=== PATIENT | male | born 1965 | race Caucasian/White ===

== ENCOUNTER → 2016-04-01 | Outpatient (CLI) | payer BC ==
[~2016-04-01] MED LIST: ACET-1311 PO; CIPR-255 PO; OXYC-57 PO; OXYC7.5T65 PO; PHEN-775 PO
[2016-04-01 10:56] LABS: BASO % 1.2 %; BASO ABS # 0.06 K/uL (0-0.2); COMPLETE YES; HEMATOCRIT 42.1 % (42-52); LYMPH % 33.7 %; LYMPH ABS # 1.68 K/uL (1.2-3.4); MEAN CELL VOLUME 91.5 fL (80-100); MEAN CORPUSCULAR HEMOGLOBIN 30.4 pg (25-34); MEAN CORPUSCULAR HGB CONC 33.3 g/dl (32-36); MEAN PLATELET VOLUME 9.6 fL (7.4-10.4); MONO % 14.3 %; NEUT % 47.8 %; PLATELET COUNT 221 K/uL (130-400); WHITE BLOOD COUNT 4.98 K/uL (4.8-10.8)
[2016-04-01 11:01] LABS: URINE APPEARANCE CLEAR (CLEAR); URINE BILIRUBIN NEG (NEG); URINE COLOR YELLOW; URINE EPITHELIAL CELL AUTO 0-5 /lpf (0-5); URINE NITRITE NEG (NEG); URINE PH 5.5 (4.5-7.5); URINE SPECIFIC GRAVITY 1.021 (1.000-1.030); UROBILINOGEN NEG (NEG)
[2016-04-01 11:08] LABS: MANUAL MICROSCOPIC REQUIRED? NO; REVIEW REQ? NO
[2016-04-01 11:32] LABS: BLOOD UREA NITROGEN 14 mg/dl (7-18); BUN/CREATININE RATIO 11.6 (10-20); CALCIUM 9.9 mg/dl (8.5-10.1); CARBON DIOXIDE 27 mmol/L (21-32); CHLORIDE 109 mmol/L (98-107); GLUCOSE 97 mg/dl (70-99); POTASSIUM 4.4 mmol/L (3.5-5.1); SODIUM 143 mmol/L (136-145)
== END | disposition home or self-care (01) ==
LOC: C.LAB 09:31
PROVIDERS: ATTEND Nurse Practitioner Family
DX: N20.0 Calculus of kidney (principal)

== ENCOUNTER → 2016-04-04 | Outpatient (CLI) | payer BC ==
--- NOTE | 2016-04-04 18:00 | DIAGNOSTIC IMAGING REPORT ---
KUB CLINICAL HISTORY: Preop study. Nephrolithiasis. COMPARISON STUDY: 03/18/2016 FINDINGS: There are 3 lower pole left renal calculi measuring 7 mm in aggregate. There are 2 overlapping calcifications projected over the superior margin of the left SI joint consistent with the left ureteral calculi. These measure 9 mm in aggregate. IMPRESSION: 1. Left-sided nephrolithiasis 2. 2 overlapping mid left ureteral calculi measuring 9 mm in aggregate Electronically signed by: Aric Gray M.D. 04/04/2016 5:58 PM Dictated Date/Time: 04/04/2016 5:55 PM
== END | disposition home or self-care (01) ==
LOC: C.RAD 16:29
PROVIDERS: ATTEND Nurse Practitioner Family
DX: N20.0 Calculus of kidney (principal); N20.1 Calculus of ureter

== ENCOUNTER → 2016-04-05 | Day surgery (SDC) | payer BC ==
[2016-04-02 13:03] VITALS: Ht 175.3 cm; Wt 96.8 kg
[~2016-04-05] VITALS: Ht 175.3 cm; Wt 96.8 kg
[~2016-04-05] MED LIST changes: +ATROPINE SULFATE 0.1 MG/ML 5ML SYR IV PRN; +CIPROFLOXACIN / D5W 400 MG IV SCH; +DEXAMETHASONE SOD INJ 4 MG/ML VIAL ONE; +EpHEDrine SULFATE INJ 50 MG/ML AMP IV PRN; +FENTANYL CITRATE INJ 50 MCG/1 ML 2 ML VIAL IV PRN; +FENTANYL CITRATE INJ 50 MCG/1 ML 2 ML VIAL ONE; +GLYCOPYRROLATE INJ 0.2 MG/ML VIAL ONE; +LACTATED RINGER'S 1000ML 1,000 ML IV SCH; +MIDAZOLAM HCL 1 MG/ML 2ML VIAL ONE; +ONDANSETRON INJ 2 MG/ML 2 ML VIAL IV PRN; +ONDANSETRON INJ 2 MG/ML 2 ML VIAL ONE; +PROPOFOL IV EMULSION 10 MG/ML 20 ML VIAL IV ONE
--- NOTE | 2016-04-05 07:04 | History & Physical Bridge - SC ---
H&P Re-Evaluation Bridge Note: I have examined the patient, reviewed the History & Physical and in the interval since the performance of the History & Physical I have noted the following changes of clinical significance: No changes noted
--- NOTE | 2016-04-05 07:46 | Discharge Instructions-SurgCtr ---
Discharge Instructions Visit Reason for Visit: Stones Discharge Goals Goal(s): Decrease discomfort, Improve function, Increase independence Activity Recommendations Activity Limitations: as noted below (no driving on narcotics) Anesthesia . Post Anesthesia Instructions: If you have had General Anesthesia or IV Sedation: * Do not drive today. * Resume driving when surgeon permits. * Do not make important decisions or sign legal documents today. * Call surgeon for: 1. Temperature elevations greater than 101 degrees F. 2. Uncontrollable pain. 3. Excessive bleeding. 4. Persistent nausea and vomiting. 5. Medication intolerance (nausea, vomiting or rash). * For nausea and vomiting use only clear liquids such as: tea, soda, bouillon until nausea subsides, then gradually increase diet as tolerated. * If you have any concerns or questions, call your surgeon's office. If physician is unavailable and it is an emergency, call 911 or go to the nearest emergency room. . Procedures Procedures Performed: Left Extracorporeal Shock Wave Lithotripsy Pending Studies Studies pending at discharge: no Medical Emergencies . Who to Call and When: Medical Emergencies: If at any time you feel your situation is an emergency, please call 911 immediately. . Non-Emergent Contact Non-Emergency issues call your: Urologist Call Non-Emergent contact if: temperature is above 101 . . "Provider Documentation" section prepared by Giorgi Plasencia.
[2016-04-05 08:32] VITALS: TEMP 36.5
[2016-04-05 09:03] VITALS: BP 109/75; PULSE 72; O2SAT 98
--- NOTE | 2016-04-05 09:05 | Anesthesia Progress Nt - [facility] ---
Anesthesia Post Op Note Date & Time Apr 05, 2016 at 09:05 Vital Signs Pain Intensity: 2 Vital Signs Past 12 Hours Date Time Temp Pulse Resp B/P Pulse Ox O2 Delivery O2 Flow Rate FiO2 04/05/16 08:32 36.5 78 16 110/65 98 Room Air 04/05/16 08:18 36.6 04/05/16 07:53 36.5 82 12 102/77 99 Diffusion Mask 8 04/05/16 06:28 36.4 72 18 121/83 97 Room Air Notes Mental Status: alert / awake / arousable, participated in evaluation Pt Amnestic to Procedure: Yes Nausea / Vomiting: adequately controlled Pain: adequately controlled Airway Patency, RR, SpO2: stable & adequate BP & HR: stable & adequate Hydration State: stable & adequate Anesthetic Complications: no major complications apparent
--- NOTE | 2016-04-05 10:17 | [facility] Post Operative Brief Note ---
Immediate Operative Summary Operative Date Apr 05, 2016. Pre-Operative Diagnosis left ureteral stone Post-Operative Diagnosis same Procedure(s) Performed Left Extracorporeal Shock Wave Lithotripsy Surgeon dr miller Cook Apprentice Surgeon(s) none Estimated Blood Loss 0 Findings stone did not change Specimens 0
--- NOTE | 2016-04-05 13:03 | OPERATIVE REPORT ---
DATE OF OPERATION: 04/05/2016 PREOPERATIVE DIAGNOSIS: Left ureteral stone. POSTOPERATIVE DIAGNOSIS: Same. PROCEDURE PERFORMED: Left ureteral ESWL. SURGEON: Dr. Plasencia. ANESTHESIA: General. INDICATIONS: The patient is a 50-year-old male with persisting left ureteral stone who presents for ESWL. PROCEDURE: He was taken to the operating room where Venodyne stockings had been placed. He was given anesthesia preoperatively. He was given general anesthesia and the stone was visualized in 2 views lining up the lithotripter. He received 3000 shocks, the majority at level 6. At the end of procedure, he was transferred to the recovery room in stable condition. I attest to the content of the Intraoperative Record and any orders documented therein. Any exceptio ns are noted below.
== END | disposition home or self-care (01) ==
LOC: X.SURG 06:03
PROVIDERS: ATTEND Urology
DX: N20.1 Calculus of ureter (principal); Z98.890 Other specified postprocedural states

== ENCOUNTER → 2016-04-16 | Outpatient (CLI) | payer BC ==
[~2016-04-16] MED LIST changes: -ATROPINE SULFATE 0.1 MG/ML 5ML SYR IV PRN; -CIPROFLOXACIN / D5W 400 MG IV SCH; -DEXAMETHASONE SOD INJ 4 MG/ML VIAL ONE; -EpHEDrine SULFATE INJ 50 MG/ML AMP IV PRN; -FENTANYL CITRATE INJ 50 MCG/1 ML 2 ML VIAL IV PRN; -FENTANYL CITRATE INJ 50 MCG/1 ML 2 ML VIAL ONE; -GLYCOPYRROLATE INJ 0.2 MG/ML VIAL ONE; -LACTATED RINGER'S 1000ML 1,000 ML IV SCH; -MIDAZOLAM HCL 1 MG/ML 2ML VIAL ONE; -ONDANSETRON INJ 2 MG/ML 2 ML VIAL IV PRN; -ONDANSETRON INJ 2 MG/ML 2 ML VIAL ONE; -PROPOFOL IV EMULSION 10 MG/ML 20 ML VIAL IV ONE
== END | disposition home or self-care (01) ==
LOC: C.LABSPEC 11:12
PROVIDERS: ATTEND Nurse Practitioner Adult Health
DX: N20.1 Calculus of ureter (principal)

== ENCOUNTER → 2016-06-12 | Outpatient (CLI) | payer BC ==
--- NOTE | 2016-06-12 11:38 | DIAGNOSTIC IMAGING REPORT ---
KUB HISTORY: Left-sided kidney stone. COMPARISON: KUB 04/15/2016. FINDINGS: The bowel gas pattern is unremarkable. There are no dilated loops of small bowel to suggest an obstruction. There are few small stones within the lower pole the left kidney, unchanged. No definite right renal axillae. The 8 mm ureteral stone seen on the prior study now resides within the expected location of the left ureterovesical junction. No pneumoperitoneum or pneumatosis. IMPRESSION: 1. The 8 mm ureteral stone seen on the prior study now resides within the expected location of the left ureterovesical junction. 2. Stable left-sided nephrolithiasis Electronically signed by: John Norton M.D. 06/12/2016 11:37 AM Dictated Date/Time: 06/12/2016 11:36 AM
== END | disposition home or self-care (01) ==
LOC: C.RAD 11:06
PROVIDERS: ATTEND Urology
DX: N20.0 Calculus of kidney (principal)

== ENCOUNTER 2016-06-27 11:08 | Day surgery (SDC) | payer BC ==
[2016-06-12 14:09] VITALS: BMI 33.0
--- NOTE | 2016-06-12 14:32 | PAT Medication Instructions ---
Service Date Jun 12, 2016. Current Home Medication List Acetaminophen (Tylenol), 650 MG PO prn Medication Instructions For Your Scheduled Surgery - Take the following medications the morning of surgery with a sip of water: Acetaminophen (Tylenol), 650 MG PO prn (if needed) - Take the following medications as scheduled the night before surgery: Acetaminophen (Tylenol), 650 MG PO prn If you have any questions please call us at [phone] or [phone] ( [place]) or [phone]
[2016-06-12 14:49] LABS: BASO % 0.6 %; BASO ABS # 0.04 K/uL (0-0.2); COMPLETE YES; EOS % 0.9 %; IG% 0.1 %; LYMPH ABS # 2.21 K/uL (1.2-3.4); MEAN CELL VOLUME 88.8 fL (80-100); MEAN CORPUSCULAR HEMOGLOBIN 30.4 pg (25-34); MEAN CORPUSCULAR HGB CONC 34.2 g/dl (32-36); MONO % 10.9 %; NEUT % 54.5 %; PLATELET COUNT 227 K/uL (130-400); RED BLOOD COUNT 4.84 M/uL (4.7-6.1); WHITE BLOOD COUNT 6.69 K/uL (4.8-10.8)
[2016-06-12 15:11] LABS: BUN/CREATININE RATIO 12.3 (10-20); CALCIUM 10.2 mg/dl (8.5-10.1); CREATININE 1.2 mg/dl (0.60-1.40); POTASSIUM 4.4 mmol/L (3.5-5.1)
[~2016-06-27] VITALS: Ht 175.3 cm; Wt 103.9 kg
[~2016-06-27 11:08] MED LIST changes: +ATROPINE SULFATE 0.1 MG/ML 5ML SYR IV PRN; -CIPR-255 PO; +CIPROFLOXACIN / D5W 400 MG IV SCH; +EpHEDrine SULFATE INJ 50 MG/ML AMP IV PRN; +FENTANYL CITRATE INJ 50 MCG/1 ML 2 ML VIAL IV PRN; +HYDROmorphone INJ 1 MG/ML SYR IV PRN; +LACTATED RINGER'S 1000ML 1,000 ML IV SCH; +ONDANSETRON INJ 2 MG/ML 2 ML VIAL IV PRN; -OXYC-57 PO; -OXYC7.5T65 PO; -PHEN-775 PO
[2016-06-27 11:52] VITALS: BP 140/82; PULSE 63; TEMP 36.6; O2SAT 96; Ht 175.3 cm; Wt 103.9 kg
--- NOTE | 2016-06-27 12:12 | History & Physical Bridge Note ---
H&P Re-Evaluation Bridge Note: I have examined the patient, reviewed the History & Physical and in the interval since the performance of the History & Physical I have noted the following changes of clinical significance: Patient for stent insertion with ureteroscopy. HM
[2016-06-27] MEDS ORDERED: ONDANSETRON INJ 2 MG/ML 2 ML VIAL ONE (12:50)
[2016-06-27] MEDS ORDERED: DEXAMETHASONE SOD INJ 4 MG/ML VIAL ONE (12:50)
[2016-06-27] MEDS ORDERED: PROPOFOL IV EMULSION 10 MG/ML 20 ML VIAL IV ONE (12:50)
[2016-06-27] MEDS ORDERED: FENTANYL CITRATE INJ 50 MCG/1 ML 2 ML VIAL ONE ×2 (12:50→14:46)
[2016-06-27] MEDS ORDERED: LIDOCAINE HCL 2% 2 ML VIAL (20MG/ML) ONE (12:50)
[2016-06-27] MEDS ORDERED: MIDAZOLAM HCL 1 MG/ML 2ML VIAL ONE (12:50)
[2016-06-27] MEDS ORDERED: PHEN-775 PO (14:28)
[2016-06-27] MEDS ORDERED: OXYC7.5T65 PO (14:28)
[2016-06-27] MEDS ORDERED: CIPR-255 PO (14:28)
--- NOTE | 2016-06-27 14:31 | Discharge Instructions ---
Discharge Instructions Date of Service Jun 27, 2016. Admission Reason for Admission: Stones Discharge Discharge Diagnosis / Problem: Stone s/p uscope, laser litho, stent Discharge Goals Goal(s): Decrease discomfort, Improve function, Improve disease control, Therapeutic intervention Activity Recommendations Activity Limitations: per Instructions/Follow-up section Lifting Limitations: gradually increase as tolerated Exercise/Sports Limitations: rest today (light activity x 2 days) May Resume Sexual Activity: after two weeks Shower/Bathe: tomorrow . Discharge Diet Recommended Diet: Regular Diet (good fluid intake) Procedures Procedures Performed: Cysto, L RPG, uscope, laser litho, stent Pending Studies Studies pending at discharge: yes List of pending studies: Stone analysis Medical Emergencies . Who to Call and When: Medical Emergencies: If at any time you feel your situation is an emergency, please call 911 immediately. . Non-Emergent Contact Non-Emergency issues call your: Urologist Call Non-Emergent contact if: you have a fever, temperature is above 101, your pain is not controlled, your pain is worsening, your pain is unusual for you, your pain is concerning you, you have any medication questions . . "Provider Documentation" section prepared by Konstantin Norris. VTE Core Measure Inpt VTE Proph given/why not?: SCD's [place] Drug Monitoring Program Search Results: patient reviewed within database, see additional documentation (last Rx Feb 2016 after ESWL)
[2016-06-27] MEDS ORDERED: CONRAY 30% 150ML BOTTLE INSTIL ONE (14:38)
--- NOTE | 2016-06-27 14:38 | [facility] Post Operative Brief Note ---
Immediate Operative Summary Operative Date Jun 27, 2016. Pre-Operative Diagnosis Left distal ureteral stone Post-Operative Diagnosis Same Procedure(s) Performed Cysto, L RPG, semirigid ureteroscopy, laser litho, stone extraction, stent placement Surgeon Jr Mireles Editor Sound Surgeon(s) NA Estimated Blood Loss Min Findings No residual distal ureteral stone, no ureteral injury Specimens Stone fragments for analysis Drains 6 fr 28 cm loop stent on left Anesthesia GALMA Complication(s) None Disposition Recovery Room / PACU
[2016-06-27] MEDS ORDERED: OXYCODONE/ACETAMINOPHEN 5-325 TAB PO PRN (14:45)
[2016-06-27] MEDS ORDERED: PHENAZOPYRIDINE HCL 200 MG TAB PO PRN (14:45)
[2016-06-27] MEDS ORDERED: OXYBUTYNIN CHLORIDE 5 MG TAB PO PRN (14:45)
--- NOTE | 2016-06-27 14:45 | DIAGNOSTIC IMAGING REPORT ---
RETROGRADE UROGRAM CLINICAL HISTORY: Left cysto, litho, and stent placement COMPARISON STUDY: KUB dated 06/12/2016 FINDINGS: 44 seconds of fluoroscopic time was utilized. 6 fluoroscopic spot images are provided for interpretation. The left ureter was catheterized in a retrograde fashion. There is a filling defect at the level the left ureterovesical junction consistent with a distal left ureteral calculus. A laser lithotripsy was performed. No additional ureteral filling defects are visualized. A left-sided nephroureteral stent was placed. IMPRESSION: Laser lithotripsy of a distal left ureteral calculus. Placement of a left-sided nephroureteral stent. Electronically signed by: Aric Gray M.D. 06/27/2016 2:44 PM Dictated Date/Time: 06/27/2016 2:42 PM
--- NOTE | 2016-06-27 14:56 | Anesthesiology Progress Note ---
Anesthesia Post Op Note Date & Time Jun 27, 2016 at 14:56 Vital Signs Pain Intensity: 2 Vital Signs Past 12 Hours Date Time Temp Pulse Resp B/P Pulse Ox O2 Delivery O2 Flow Rate FiO2 06/27/16 14:50 59 16 111/76 92 Room Air 06/27/16 14:40 60 12 115/79 93 Room Air 06/27/16 14:31 36.2 70 16 122/82 98 Mask 10 06/27/16 11:52 36.6 63 16 140/82 96 Room Air Notes Mental Status: alert / awake / arousable, participated in evaluation Pt Amnestic to Procedure: Yes Nausea / Vomiting: adequately controlled Pain: adequately controlled Airway Patency, RR, SpO2: stable & adequate BP & HR: stable & adequate Hydration State: stable & adequate Anesthetic Complications: no major complications apparent
--- NOTE | 2016-06-27 15:11 | OPERATIVE REPORT ---
DATE OF OPERATION: 06/27/2016 PREOPERATIVE DIAGNOSIS: Refractory left distal ureteral stone. POSTOPERATIVE DIAGNOSIS: Same. PROCEDURES: Cystoscopy, left retrograde pyelography, left semirigid ureteroscopy with laser lithotripsy, stone extraction, and ureteral stent placement. SURGEON: Konstantin Norris MD BAR PILOT: None. ANESTHESIA: General anesthesia with laryngeal mask. COMPLICATIONS: None. SPECIMENS SENT TO PATHOLOGY: Left ureteral stone fragments for chemical analysis. DRAINS LEFT IN PLACE: Include a 6-Greenlandic 28 cm loop stent on the left hand side. ESTIMATED BLOOD LOSS: Minimal. FINDINGS: No residual stone after fragmentation. No ureteral injury, good stent position on fluoroscopy. BRIEF HISTORY OF PRESENT ILLNESS: Mr. Genao is a pleasant 50-year-old male with a history of a relatively asymptomatic distal left ureteral stone. He has undergone lithotripsy x2, but the stone persists on imaging. Seeing that it has been present for several months, endoscopic management is being planned. Please see H\T\P for further details. Intravenous antibiotics were provided for coverage and SCDs used for DVT prophylaxis. DESCRIPTION OF PROCEDURE: The patient was properly identified and brought to the operative suite after identification of appropriate consent on the chart, general anesthesia with laryngeal mask was initiated. The patient was prepped and draped in standard fashion for this procedure. time signal wirer-out procedure was followed. A 22-Greenlandic rigid cystoscope was passed into the bladder under direct visualization. The patient was noted to have a mildly obstructive prostate with a slightly elevated bladder neck. No evidence of stricture was noted. Bladder was surveyed in its entirety demonstrating no intravesical lesions, papillary masses or mucosal changes. Right-sided ureteral orifice was noted in the normal and anatomic location and effluxing clear, yellow urine. Left-sided ureteral orifice was mounded with evidence of stone right at the ureteral orifice. A gentle retrograde pyelography was performed demonstrating distal ureteral dilation but relatively little proximal hydroureteronephrosis. A sensor tip wire was advanced up to the level of the left renal pelvis and kept in the kidney until the end of the case as a safety wire. Semirigid ureteroscope was easily advanced into the ureter and stone was encountered. This was fragmented using a 250 micron fiber into small pieces which were amenable for removal with a 0 tip nitinol basket. This was repeated until the distal ureter was clear up to the level of the vessels. No evidence of retropulsion of stone and no residual stone present on fluoroscopy. Complete exit ureteroscopy was performed demonstrating no evidence of ureteral injury or tears. Ureteroscope was removed and cystoscope was backloaded over the safety wire. A 6-Greenlandic 28 cm loop stent was advanced and with a coil stent present in the upper pole and redundant loops present within the bladder. Bladder was drained and stones were irrigated free. Stent was appreciated to be in good position and cystoscope was removed, anesthesia was reversed. The patient was transferred to recovery room in stable condition. FOLLOWUP CARE: The patient will be discharged home today with a prescription for ciprofloxacin, Percocet, and Pyridium. Outpatient appointments are confirmed. The patient is instructed to contact our service should he note any fevers, chills, nausea, vomiting or other significant difficulties in the postoperative period. I attest to the content of the Intraoperative Record and any orders documented therein. Any exceptio ns are noted below.
[2016-06-27 15:15] VITALS: BP 102/61; PULSE 56; TEMP 36.7; O2SAT 96
[2016-06-27 15:45] VITALS: BP 109/74; PULSE 58; O2SAT 97
[2016-06-27 16:10] VITALS: BP 122/80; PULSE 62; TEMP 36.4; O2SAT 98
== END 2016-06-27 16:15 | disposition home or self-care (01) ==
LOC: C.ACU 11:08
PROVIDERS: ATTEND Urology
DX: N20.1 Calculus of ureter (principal); N13.30 Unspecified hydronephrosis

== ENCOUNTER → 2016-07-10 | Outpatient (CLI) | payer BC ==
[~2016-07-10] MED LIST changes: -ATROPINE SULFATE 0.1 MG/ML 5ML SYR IV PRN; +CIPR-255 PO; -CIPROFLOXACIN / D5W 400 MG IV SCH; -EpHEDrine SULFATE INJ 50 MG/ML AMP IV PRN; -FENTANYL CITRATE INJ 50 MCG/1 ML 2 ML VIAL IV PRN; -HYDROmorphone INJ 1 MG/ML SYR IV PRN; -LACTATED RINGER'S 1000ML 1,000 ML IV SCH; -ONDANSETRON INJ 2 MG/ML 2 ML VIAL IV PRN; +OXYC7.5T65 PO
--- NOTE | 2016-07-10 13:22 | DIAGNOSTIC IMAGING REPORT ---
KUB CLINICAL HISTORY: Nephrolithiasis. FINDINGS: 2 AP supine abdominal radiographs are compared to study dated 06/12/2016 and correlated with abdominal CT dated 02/21/2016. A left ureteral stent is new from previous. No calcifications are seen along the course of the stent. No calcifications are identified projecting over either kidney or along the course of the right ureter. There is a nonobstructed abdominal bowel gas pattern noting moderate colonic fecal retention. The bony structures appear intact. IMPRESSION: 1. A left ureteral stent is new from previous. No calcifications project along the course of the stent. 2. No renal calculi are identified on today's examination. Electronically signed by: Tony Bartlett M.D. 07/10/2016 1:20 PM Dictated Date/Time: 07/10/2016 1:19 PM
== END | disposition home or self-care (01) ==
LOC: C.RAD 13:00
PROVIDERS: ATTEND Urology
DX: N20.0 Calculus of kidney (principal)

== ENCOUNTER → 2016-11-12 | Outpatient (CLI) | payer BC ==
--- NOTE | 2016-11-12 11:46 | DIAGNOSTIC IMAGING REPORT ---
KUB HISTORY: N13.30 [id number] COMPARISON: KUB 07/10/2016. FINDINGS: The bowel gas pattern is unremarkable. There are no dilated loops of small bowel to suggest an obstruction. No renal calculi. No ureteral calculi. No pneumoperitoneum or pneumatosis. IMPRESSION: No renal or ureteral stones. Electronically signed by: John Norton M.D. 11/12/2016 11:45 AM Dictated Date/Time: 11/12/2016 11:44 AM
--- NOTE | 2016-11-12 12:20 | DIAGNOSTIC IMAGING REPORT ---
(RENAL)RETROPERITON COMP CLINICAL HISTORY: 50 years-old Male presenting with hydroureteronephrosis. TECHNIQUE: Real-time grayscale and limited color Doppler ultrasound imaging of the kidneys and bladder was performed. COMPARISON: Plain radiograph of the abdomen from 11/12/[address] from 02/21/2016. FINDINGS: Right kidney: Normal echogenicity. Right kidney measures 11.4 cm. Mild pelvocaliectasis, unchanged from prior CT. 7 mm hyperechoic focus at the lower pole without convincing evidence of posterior acoustic shadowing or twinkling artifact. Possibly prominent renal sinus fat. Normal perfusion. Left kidney: Normal echogenicity, although mild cortical thinning may be present. Left kidney measures 11.6 cm. No hydronephrosis. No convincing evidence of calculus or mass. Normal perfusion. Bladder: No bladder wall thickening. Bilateral ureteral jets present. Other: None. IMPRESSION: 1. No convincing evidence of renal calculus. 2. Mild right pelvocaliectasis, unchanged from prior CT. No convincing evidence of obstruction. Electronically signed by: Gianni Nicolas M.D. 11/12/2016 12:19 PM Dictated Date/Time: 11/12/2016 12:15 PM
== END | disposition home or self-care (01) ==
LOC: C.ULTR 11:17
PROVIDERS: ATTEND Urology
DX: N13.30 Unspecified hydronephrosis (principal)